=== PATIENT | female | born 1990 | race Caucasian/White ===

== ENCOUNTER 2019-08-11 04:35 | Emergency (ER) | payer OTHER ==
[~2019-08-11] VITALS: Ht 154.9 cm; Wt 79.4 kg
[2019-08-11 04:47] VITALS: BP 129/83
[2019-08-11] MEDS ORDERED: NACL 0.9% 1,000 ML IV ONE (05:30)
[2019-08-11] MEDS ORDERED: KETOROLAC 30 MG/ML VIAL IVP ONE (05:30)
[2019-08-11 06:17] LABS: BASOPHILS # (AUTO) 0.1 K/uL (0.00-0.22); BASOPHILS % (AUTO) 0.9 % (0.0-2.0); EOSINOPHILS # (AUTO) 0.3 K/uL (0-0.4); EOSINOPHILS % (AUTO) 3.3 % (0.0-4.0); HEMOGLOBIN 14.6 g/dL (12.0-16.0); LYMPHOCYTES # (AUTO) 3.2 K/uL (2.5-16.5); LYMPHOCYTES % (AUTO) 32.9 % (20.5-51.1); MEAN CORPUSCULAR HEMOGLOBIN 29 pg (27-31); MEAN CORPUSCULAR HGB CONC 33 g/dL (33-37); MEAN CORPUSCULAR VOLUME 88.3 fL (80-94); MONOCYTES # (AUTO) 0.7 K/uL (0.8-1.0); NEUTROPHILS # (AUTO) 5.4 K/uL (1.8-7.7); NEUTROPHILS % (AUTO) 55.9 % (42.2-75.2); PLATELET COUNT (AUTO) 305 K/uL (140-450); RED BLOOD CELL COUNT(AUTO) 4.98 MIL/uL (4.20-5.40); RED CELL DISTRIBUTION WIDTH 13.6 % (11.6-13.7); WHITE BLOOD COUNT (AUTO) 9.6 K/uL (4.8-10.8)
[2019-08-11 06:42] LABS: ALBUMIN 3.8 g/dL (3.4-5.0); ANION GAP 11.3 (8-16); CARBON DIOXIDE 28.6 mmol/L (21-32); CREATININE 0.8 mg/dL (0.6-1.3); POTASSIUM 3.9 mmol/L (3.5-5.1); TOTAL BILIRUBIN 0.3 mg/dL (0.0-1.0)
--- NOTE | 2019-08-11 07:27 | NUR ---
RECEIVED REPORT FROM SASKIA COLEMAN. PT RESTING IN BED.
[2019-08-11] MEDS ORDERED: MORPHINE SULFATE 4 MG/ML SYR IVP ONE (07:35)
[2019-08-11] MEDS ORDERED: ONDANSETRON 4 MG/2 ML VIAL IVP ONE (07:35)
--- NOTE | 2019-08-11 07:45 | NUR ---
CALLED PHARMACY TO OBTAIN THE MORPHINE ORDERED.
--- NOTE | 2019-08-11 07:47 | NUR ---
LEFT PHARMACY VOICEMAIL IN REGARDS OF OUT OF STOCK MORPHINE SULFATE IN ER OMNICELL
--- NOTE | 2019-08-11 08:06 | NUR ---
PHARMACY CALLED FOR MORPHINE, OUT OF STOCK IN ER OMNICELL. NO ANSWER; 2ND ATTEMPT
[2019-08-11] MEDS ORDERED: MORPHINE SULFATE 5 MG/ML VIAL ONE (08:28)
[2019-08-11 09:08] VITALS: BP 121/86
--- NOTE | 2019-08-11 09:08 | NUR ---
Patient discharged with v/s stable. Written and verbal after care instructions given and explained. Patient alert, oriented and verbalized understanding of instructions. Wheel Chair Assisted with steady gait. All questions addressed prior to discharge. ID band removed. Patient advised to follow up with PMD. Rx of ZOFRAN given. Patient educated on indication of medication including possible reaction and side effects. Opportunity to ask questions provided and answered.
== END 2019-08-11 09:08 | disposition home or self-care (01) ==
LOC: MED 04:35
DX: A08.4 Viral intestinal infection, unspecified (principal); G43.909 Migraine, unspecified, not intractable, without status migrainosus; F41.0 Panic disorder [episodic paroxysmal anxiety]; Z88.0 Allergy status to penicillin; Z91.040 Latex allergy status
CPT/HCPCS: 36415; 80053; 82150; 83690; 84702; 85025; 96361; 96374; 96375; 99284; J1885; J2270; J2405; J7030

== ENCOUNTER 2019-08-31 16:37 | Emergency (ER) | payer OTHER ==
[~2019-08-31] VITALS: Ht 154.9 cm; Wt 81.6 kg
[2019-08-31 16:41] VITALS: BP 142/95
--- NOTE | 2019-08-31 16:55 | NUR ---
28/F C/O CHEST PAIN STARTING APPROX 20 MIN AGO. PAIN STARTED AT MID CHEST, SHOOTING TO RIGHT ARM AND THEN LEFT ARM AND HEAD. DESCRIBED PAIN "A SHOCK". PT WAS LYING DOWN WHEN PAIN STARTED. STATES "I HAVE NAUSEA BUT I WAS SEEN LAST WEEK & WAS TOLD THAT IUD IS LYING TOO LOW & THAT MAY BE CAUSING THE NAUSEA". STATES SOB. SPEAKING IN FULL CLEAR SENTENCES. NAD. PT STATES SHE JUST BEGAN TAKING A MEDICATION FOR HER THYROID TODAY AFTER NOT TAKING IT FOR A WHILE, SHE THINKS ITS LEVOTHYROXINE. DOES NOT KNOW THE DOSE. HX: THYROID, ANXIETY, HERPES RX: VALCYCLOVIR, ALPRAZOLAM, LEVOTHYROXINE (?)
--- NOTE | 2019-08-31 16:59 | NUR ---
EMT AT BEDSIDE FOR EKG
[2019-08-31 17:15] LABS: BASOPHILS # (AUTO) 0.1 K/uL (0.00-0.22); BASOPHILS % (AUTO) 1.4 % (0.0-2.0); EOSINOPHILS # (AUTO) 0.3 K/uL (0-0.4); EOSINOPHILS % (AUTO) 4.3 % (0.0-4.0); HEMATOCRIT 39.8 % (36-48); HEMOGLOBIN 13.2 g/dL (12.0-16.0); LYMPHOCYTES # (AUTO) 2.3 K/uL (2.5-16.5); LYMPHOCYTES % (AUTO) 28.8 % (20.5-51.1); MEAN CORPUSCULAR HEMOGLOBIN 29 pg (27-31); MEAN CORPUSCULAR HGB CONC 33 g/dL (33-37); MEAN CORPUSCULAR VOLUME 88.3 fL (80-94); MONOCYTES # (AUTO) 0.5 K/uL (0.8-1.0); MONOCYTES % (AUTO) 6.7 % (1.7-9.3); NEUTROPHILS # (AUTO) 4.7 K/uL (1.8-7.7); NEUTROPHILS % (AUTO) 58.8 % (42.2-75.2); PLATELET COUNT (AUTO) 296 K/uL (140-450); RED BLOOD CELL COUNT(AUTO) 4.51 MIL/uL (4.20-5.40); RED CELL DISTRIBUTION WIDTH 13.4 % (11.6-13.7); WHITE BLOOD COUNT (AUTO) 7.9 K/uL (4.8-10.8)
[2019-08-31 18:03] LABS: FREE T4 (FREE THYROXINE) 1.22 ng/dL (0.76-1.46); THYROID STIMULATING HORMONE 1.43 uIU/mL (0.34-3.74)
[2019-08-31 18:24] LABS: ALBUMIN 3.7 g/dL (3.4-5.0); CARBON DIOXIDE 26.3 mmol/L (21-32); CREATININE 0.7 mg/dL (0.6-1.3); POTASSIUM 4.3 mmol/L (3.5-5.1); TOTAL BILIRUBIN 0.3 mg/dL (0.0-1.0)
[2019-08-31 18:37] VITALS: BP 132/69
== END 2019-08-31 18:38 | disposition home or self-care (01) ==
LOC: MED 16:37
DX: F41.9 Anxiety disorder, unspecified (principal); G43.909 Migraine, unspecified, not intractable, without status migrainosus; E07.9 Disorder of thyroid, unspecified; Z88.0 Allergy status to penicillin; Z91.040 Latex allergy status
CPT/HCPCS: 36415; 80053; 81025; 84439; 84443; 85025; 93005; 99283; 99284

== ENCOUNTER 2019-10-06 17:31 | Emergency (ER) | payer OTHER ==
[~2019-10-06] VITALS: Ht 154.9 cm; Wt 79.4 kg
--- NOTE | 2019-10-06 17:40 | NUR ---
PT AMBULATED TO ER BED 5
[2019-10-06 17:41] VITALS: BP 133/84
--- NOTE | 2019-10-06 17:55 | NUR ---
c/o pressure type headache with n/v and visual disturbance denies injury/trauma, denies etoh/drug use--- full clear speech, ambulatory with steady gait pupils brisk/reactive to light
[2019-10-06] MEDS ORDERED: ONDANSETRON 4 MG/2 ML VIAL IVP ONE (18:05)
[2019-10-06] MEDS ORDERED: NACL 0.9% 1,000 ML IV ONE (18:05)
[2019-10-06] MEDS ORDERED: SUMAtriptan succinate 25 MG TAB PO ONE (18:05)
[2019-10-06] MEDS ORDERED: KETOROLAC 15 MG/ML VIAL IVP ONE (18:05)
--- NOTE | 2019-10-06 18:33 | NUR ---
MEDICATED WRITTEN, AWAITS CT SCAN WILL CONTINUE TO OBSERVE FOR PAIN CONTROL
[2019-10-06 18:41] LABS: APPEARANCE,URINE CLEAR (CLEAR); BILIRUBIN,URINE NEGATIVE (NEGATIVE); BLOOD, URINE TRACE-I (NEGATIVE); COLOR,URINE YELLOW (YELLOW); LEUKOCYTE ESTERASE ,URINE TRACE (NEGATIVE); NITRITE, URINE NEGATIVE (NEGATIVE); PH,URINE 7.5 (5.0-9.0); UGLUCOSE NEGATIVE (NEGATIVE)
--- NOTE | 2019-10-06 19:19 | NUR ---
RECEIVED REPORT FROM JARED SOTELO. WILL CONT CARE AT THIS TIME.
--- NOTE | 2019-10-06 19:25 | NUR ---
TOOK FLU SWAB TO LAB AT THIS TIME.
[2019-10-06 20:36] VITALS: BP 119/81
--- NOTE | 2019-10-06 20:36 | NUR ---
Patient discharged with v/s stable. Written and verbal after care instructions given and explained. Patient alert, oriented and verbalized understanding of instructions. Ambulatory with steady gait. All questions addressed prior to discharge. ID band removed. Patient advised to follow up with PMD. Rx of ZOFRAN,AND SUMATRIPTAN given. Patient educated on indication of medication including possible reaction and side effects. Opportunity to ask questions provided and answered.
== END 2019-10-06 20:36 | disposition home or self-care (01) ==
LOC: MED 17:31
DX: G43.909 Migraine, unspecified, not intractable, without status migrainosus (principal); R07.2 Precordial pain; R11.2 Nausea with vomiting, unspecified; F41.9 Anxiety disorder, unspecified; E07.9 Disorder of thyroid, unspecified; Z88.0 Allergy status to penicillin; Z91.040 Latex allergy status
CPT/HCPCS: 70450; 71045; 81003; 81025; 87804; 93005; 96374; 96375; 99285; J1885; J2405; J7030

== ENCOUNTER 2020-04-18 03:40 | Emergency (ER) | payer OTHER ==
[~2020-04-18] VITALS: Ht 154.9 cm; Wt 79.4 kg
[2020-04-18 03:41] VITALS: BP 122/80
--- NOTE | 2020-04-18 03:44 | NUR ---
TO LOBBY A/W BED AMBULATORY
--- NOTE | 2020-04-18 04:15 | NUR ---
PT 29 Y/O FEMALE BIB SELF FOR C/O DIZZYNESS UPON STANDING AND X 1 EPISODE OF N/V THIS MORNING. PT STATES, "I JUST FEEL WEIRD, ITS USUALLY WHEN I STAND UP TO FAST." PT DENIES LOC OR BLURRED VISION. PT STATES HAD X 1 EPISODES OF N/V X 1 HOUR AGO WHEN WAKING UP. PT ABD SOFT, ROUND, AND NON-TENDER TO TOUCH. BS PRESENT X 4 QUADRANTS. PT DENIES ANY BLOOD IN EMISIS. VSS. PT BED LOCKED AND IN LOWEST POSITION. MEDHX: MIGRAINE ALLERGIES: PCN, LATEX.
--- NOTE | 2020-04-18 04:15 | NUR ---
PT AMBULATED TO CHAIR C
--- NOTE | 2020-04-18 04:16 | NUR ---
ERMD EVALUATING PT AT BEDSIDE.
[2020-04-18] MEDS ORDERED: NACL 0.9% 1,000 ML IV ONE (04:20)
--- NOTE | 2020-04-18 04:20 | NUR ---
PT AMBULATED TO RESTROOM WITH STEADY GAIT TO PROVIDE UA.
--- NOTE | 2020-04-18 04:52 | NUR ---
18G IV SITE ESTABLISHED TO L AC. SITE WAS PATENT FLUSHED WITH 10 ML OF 0.9% NS. NO INFILTRATION OR REDNESS NOTED.
--- NOTE | 2020-04-18 05:52 | NUR ---
PT BEDSTING IN BED WITH IFV RUNNING PRDERED. PT DENIES AND PAIN, DENIES FURTHER FEELINGS OF NAUSEA. PT HAS NOT HAD EPISODE OF NAUSEA SINCE ARRIVAL. "I DON'T FEEL DIZZY RIGHT NOW."
[2020-04-18 05:53] VITALS: BP 126/84
[2020-04-18 06:21] LABS: ANION GAP 13.3 (8-16); CARBON DIOXIDE 24.6 mmol/L (21-32); CREATININE 0.7 mg/dL (0.6-1.3); POTASSIUM 3.9 mmol/L (3.5-5.1)
[2020-04-18 06:29] LABS: BASOPHILS % (AUTO) 0.6 % (0.0-2.0); EOSINOPHILS # (AUTO) 0.2 K/uL (0-0.4); EOSINOPHILS % (AUTO) 2.5 % (0.0-4.0); HEMATOCRIT 39.8 % (36-48); HEMOGLOBIN 13.1 g/dL (12.0-16.0); LYMPHOCYTES # (AUTO) 2.4 K/uL (2.5-16.5); MEAN CORPUSCULAR HEMOGLOBIN 29 pg (27-31); MEAN CORPUSCULAR HGB CONC 33 g/dL (33-37); MEAN CORPUSCULAR VOLUME 87.7 fL (80-94); MONOCYTES # (AUTO) 0.5 K/uL (0.8-1.0); MONOCYTES % (AUTO) 6.3 % (1.7-9.3); NEUTROPHILS # (AUTO) 4.8 K/uL (1.8-7.7); NEUTROPHILS % (AUTO) 60.6 % (42.2-75.2); PLATELET COUNT (AUTO) 262 K/uL (140-450); RED BLOOD CELL COUNT(AUTO) 4.54 MIL/uL (4.20-5.40); RED CELL DISTRIBUTION WIDTH 13.1 % (11.6-13.7); WHITE BLOOD COUNT (AUTO) 7.9 K/uL (4.8-10.8)
--- NOTE | 2020-04-18 06:40 | NUR ---
IV removed, catheter intact and site benign. Applied folded 4x4 gauze and tape to stop bleeding.
--- NOTE | 2020-04-18 06:54 | NUR ---
Patient discharged with v/s stable. Written and verbal after care instructions given and explained. Patient verbalized understanding. Ambulatory with steady gait. All questions addressed prior to discharge. Advised to follow up with PMD.
== END 2020-04-18 06:54 | disposition home or self-care (01) ==
LOC: MED 03:40
DX: R42 Dizziness and giddiness (principal); E07.9 Disorder of thyroid, unspecified; Z88.0 Allergy status to penicillin; Z91.040 Latex allergy status
CPT/HCPCS: 36415; 80048; 81002; 81025; 85025; 93005; 96360; 96361; 99284; J7030

== ENCOUNTER 2020-08-11 21:59 | Emergency (ER) | payer OTHER ==
[~2020-08-11] VITALS: Ht 154.9 cm; Wt 81.6 kg
[2020-08-11 22:09] VITALS: BP 126/88
--- NOTE | 2020-08-11 22:09 | NUR ---
to bed ambulatory
[2020-08-11] MEDS ORDERED: IBUP-2213 PO (22:19)
--- NOTE | 2020-08-11 22:25 | NUR ---
PATIENT BIB SELF C/O LEFT WRIST PAIN 6 S/P FALL X 1 DAY AGO. PER PATIENT THE PAIN IS SHARP AND RADIATES "TO THE MIDDLE OF MY ARM." A & O X4. SKIN IS PINK, WARM, INTACT. NO APPARENT DISTRESS AT THIS TIME. DENIES CP, SOB, DIFFICULTY BREATHING. PATIENT REPORTS TAKING IBUPROFEN EARLIER WITH NO RELIEF. BED IS LOCKED AND IN LOWEST POSITION. MED HX: DENIES ALLERGIES: PENICILLINS, LATEX
--- NOTE | 2020-08-11 22:28 | NUR ---
PATIENT TAKEN TO XRAY WITH TECH BY SIDE.
--- NOTE | 2020-08-11 22:34 | NUR ---
PATIENT RETURNED FROM XRAY AND AMBULATED TO RESTROOM.
[2020-08-11] MEDS ORDERED: ACETAMINOPHEN EXTRA STRENGTH 500 MG TAB PO ONE ×2 (23:10→23:20)
--- NOTE | 2020-08-11 23:26 | NUR ---
WRIST AND FOREARM SPLINT PLACED ON PT L WRIST AND FASTENED. +CSM
[2020-08-11 23:58] VITALS: BP 126/88
== END 2020-08-11 23:58 | disposition home or self-care (01) ==
LOC: MED 21:59
DX: M25.532 Pain in left wrist (principal); E07.9 Disorder of thyroid, unspecified; Z79.899 Other long term (current) drug therapy; Z88.0 Allergy status to penicillin; Z91.040 Latex allergy status
CPT/HCPCS: 73110; 99283

== ENCOUNTER 2020-10-22 18:09 | Emergency (ER) | payer OTHER, SELFPAY ==
[~2020-10-22] VITALS: Ht 154.9 cm; Wt 83.9 kg
[~2020-10-22 18:09] MED LIST: IBUP-2213 PO
[2020-10-22 18:13] VITALS: BP 138/89
[2020-10-22] MEDS ORDERED: DEXAMETHASONE 10 MG/ML VIAL IM ONE (18:50)
[2020-10-22] MEDS ORDERED: ALBU0.0912 IH (19:01)
[2020-10-22] MEDS ORDERED: BENZ-196 PO (19:01)
[2020-10-22 19:18] VITALS: BP 125/82
== END 2020-10-22 19:18 | disposition home or self-care (01) ==
LOC: MED 18:09
DX: J20.9 Acute bronchitis, unspecified (principal); E03.9 Hypothyroidism, unspecified; Z88.0 Allergy status to penicillin; Z91.040 Latex allergy status; Z79.899 Other long term (current) drug therapy; Z20.822 Contact with and (suspected) exposure to COVID-19
CPT/HCPCS: 71045; 81025; 87426; 87804; 96372; 99284; J1100

== ENCOUNTER 2020-11-11 19:05 | Emergency (ER) | payer OTHER, SELFPAY ==
[~2020-11-11] VITALS: Ht 154.9 cm; Wt 82.6 kg
[~2020-11-11 19:05] MED LIST changes: +ALBU0.0912 IH; +BENZ-196 PO
--- NOTE | 2020-11-11 19:15 | NUR ---
pt ambulated to bed #2
[2020-11-11 19:21] VITALS: BP 123/84
--- NOTE | 2020-11-11 19:45 | NUR ---
PATIENT PRESENTS TO ED WITH C/O SOB . PT STATES "I WAS DIAGNOSED WITH COVID LAST MONDAY, I HAD BRONCHITIS BEFORE THAT. DENIES N/V/D; SKIN IS PINK/WARM/DRY; AAOX4 WITH EVEN AND STEADY GAIT; LUNGS CLEAR BL; HR EVEN AND REGULAR; PATIENT STATES PAIN OF 3/10 AT THIS TIME; VSS; HOB ELEVATED; BEDRAILS UP X2; BED DOWN. ER MD MADE AWARE OF PT STATUS.
[2020-11-11] MEDS ORDERED: ACETAMINOPHEN 325 MG TAB PO ONE (19:50)
[2020-11-11] MEDS ORDERED: predniSONE 20 MG TAB PO ONE (19:50)
[2020-11-11] MEDS ORDERED: ALBUTEROL SULFATE/IPRATROPIU 3 ML SOL IH ONE (19:50)
--- NOTE | 2020-11-11 19:50 | NUR ---
LAB AT BEDSIDE
[2020-11-11 20:18] LABS: BASOPHILS % (AUTO) 0.4 % (0.0-2.0); EOSINOPHILS # (AUTO) 0.1 K/uL (0-0.4); EOSINOPHILS % (AUTO) 1.6 % (0.0-4.0); HEMATOCRIT 41.9 % (36-48); HEMOGLOBIN 14.1 g/dL (12.0-16.0); LYMPHOCYTES # (AUTO) 1.4 K/uL (2.5-16.5); LYMPHOCYTES % (AUTO) 43.5 % (20.5-51.1); MEAN CORPUSCULAR HEMOGLOBIN 29 pg (27-31); MEAN CORPUSCULAR HGB CONC 34 g/dL (33-37); MEAN CORPUSCULAR VOLUME 85.4 fL (80-94); MONOCYTES # (AUTO) 0.2 K/uL (0.8-1.0); MONOCYTES % (AUTO) 7.4 % (1.7-9.3); NEUTROPHILS # (AUTO) 1.5 K/uL (1.8-7.7); NEUTROPHILS % (AUTO) 47.1 % (42.2-75.2); PLATELET COUNT (AUTO) 256 K/uL (140-450); RED CELL DISTRIBUTION WIDTH 13.8 % (11.6-13.7); WHITE BLOOD COUNT (AUTO) 3.3 K/uL (4.8-10.8)
[2020-11-11 20:35] LABS: ANION GAP 13.6 (8-16); CARBON DIOXIDE 26.1 mmol/L (21-32); CREATININE 0.7 mg/dL (0.6-1.3); POTASSIUM 3.7 mmol/L (3.5-5.1)
[2020-11-11] MEDS: BENZONATATE 100 MG CAPLF PO SCH ×3 (20:42→20:49)
[2020-11-11] MEDS ORDERED: PRED20TA5 PO (20:44)
[2020-11-11] MEDS ORDERED: AZIT250T4 PO (20:44)
[2020-11-11] MEDS ORDERED: BENZ-196 PO (20:44)
[2020-11-11 20:52] VITALS: BP 130/79
--- NOTE | 2020-11-11 20:53 | NUR ---
Patient discharged with v/s stable. Written and verbal after care instructions given and explained. Patient alert, oriented and verbalized understanding of instructions. Ambulatory with steady gait. All questions addressed prior to discharge. ID band removed. Patient advised to follow up with PMD. Rx of TESSALON PERLE, ZITHROMAX AND PREDNISONE given. Patient educated on indication of medication including possible reaction and side effects. Opportunity to ask questions provided and answered.
== END 2020-11-11 20:52 | disposition home or self-care (01) ==
LOC: MED 19:05
DX: U07.1 COVID-19 (principal); J12.89 Other viral pneumonia; Z79.899 Other long term (current) drug therapy; Z79.51 Long term (current) use of inhaled steroids; Z79.2 Long term (current) use of antibiotics; Z88.0 Allergy status to penicillin; Z91.040 Latex allergy status
CPT/HCPCS: 36415; 71045; 80048; 85025; 94640; 99284; J7512

== ENCOUNTER 2020-12-28 09:28 | Emergency (ER) | payer OTHER, SELFPAY ==
[~2020-12-28] VITALS: Ht 154.9 cm; Wt 86.2 kg
[~2020-12-28 09:28] MED LIST changes: +AZIT250T4 PO; -IBUP-2213 PO; +PRED20TA5 PO
[2020-12-28 09:51] VITALS: BP 133/91
[2020-12-28] MEDS ORDERED: PROCHLORPERAZINE 10 MG/2 ML VIAL IM ONE (10:10)
[2020-12-28] MEDS ORDERED: KETOROLAC 60 MG/2 ML VIAL IM ONE (10:10)
--- NOTE | 2020-12-28 10:13 | NUR ---
Pt ambulated to bed 06.
--- NOTE | 2020-12-28 10:23 | NUR ---
30 Y/O FEMALE C/O HEADACHE, ABD PAIN 7/10 DESCRIBES CRAMPING GENERALIZED NON-RADIATING, X 5 AM TODAY. COVID TESTED + 11/06/20 & TESTED NEGATIVE IN NOVEMBER 2020. PT DENIES FEVER/+CHILLS, STATES +N/+V 1 TIME SINCE ARRIVAL. ABDOMEN IS SOFT, ROUND, NON-TENDER TO PALPATION, BOWEL SOUNDS ACTIVE X4, LAST BM 12/27/20. DENIES PMH ALLERGIES: PCN, LATEX
--- NOTE | 2020-12-28 11:06 | NUR ---
DR. HAYDEN AT PT BEDSIDE FOR RE-EVALUATION.
[2020-12-28] MEDS ORDERED: ONDA-24 SL (11:19)
[2020-12-28 11:32] VITALS: BP 128/86
--- NOTE | 2020-12-28 11:32 | NUR ---
Patient discharged with v/s stable. Written and verbal after care instructions given N/V, AND RECURRENT MIGRAINES and explained. Patient alert, oriented and verbalized understanding of instructions. Ambulatory with steady gait. All questions addressed prior to discharge. ID band removed. Patient advised to follow up with PMD. Rx of ZOFRAN 4MG ODT Q8H PRN N/V given. Patient educated on indication of medication including possible reaction and side effects. Opportunity to ask questions provided and answered.
== END 2020-12-28 11:32 | disposition home or self-care (01) ==
LOC: MED 09:28
DX: R11.2 Nausea with vomiting, unspecified (principal); G43.909 Migraine, unspecified, not intractable, without status migrainosus
CPT/HCPCS: 81002; 81025; 96372; 99284; J0780; J1885; Q0163

== ENCOUNTER 2021-06-13 13:02 | Emergency (ER) | payer MEDICAID, SELFPAY ==
[~2021-06-13] VITALS: Ht 154.9 cm; Wt 86.2 kg
[~2021-06-13 13:02] MED LIST changes: +ONDA-188 SL
[2021-06-13 13:07] VITALS: BP 131/90
--- NOTE | 2021-06-13 13:35 | NUR ---
30/F PRESENTS TO ED WITH C/O SORE THROAT, DRY COUGH AND RUNNY NOSE X1 WEEK, REPORTS TAKING OTC COUGH MEDICINE WITH MILD RELIEF. PATIENT STATES FAMILY WAS RECEN[place] IN [place] AND EVERYONE HAD SIMILAR SYMPTOMS, STATES DAUGHTER THAT LIVES IN THE SAME HOUSE HAS SIMILAR SYMPTOMS. DENIES RECENT COVID EXPOSURE TO HER KNOWLEDGE, DENIES FEVERS, CP, SOB.
[2021-06-13] MEDS ORDERED: IBUPROFEN 600 MG TAB PO ONE (13:40)
[2021-06-13 15:00] VITALS: BP 131/90
--- NOTE | 2021-06-13 15:00 | NUR ---
Patient discharged with v/s stable. Written and verbal after care instructions ABOUT UPPER RESPIRATORY INFECTION given and explained. Patient verbalized understanding. Ambulatory with steady gait. All questions addressed prior to discharge. Advised to follow up with PMD.
== END 2021-06-13 15:00 | disposition home or self-care (01) ==
LOC: MED 13:02
DX: J02.8 Acute pharyngitis due to other specified organisms (principal); B97.89 Other viral agents as the cause of diseases classified elsewhere; J06.9 Acute upper respiratory infection, unspecified; Z20.822 Contact with and (suspected) exposure to COVID-19; Z79.899 Other long term (current) drug therapy; Z79.2 Long term (current) use of antibiotics; Z79.51 Long term (current) use of inhaled steroids; Z88.0 Allergy status to penicillin; Z91.040 Latex allergy status
CPT/HCPCS: 87081; 87804; 99283; U0003

== ENCOUNTER 2022-07-06 08:31 | Emergency (ER) | payer MEDICAID, OTHER ==
[~2022-07-06] VITALS: Ht 157.5 cm; Wt 85.7 kg
[2022-07-06 08:49] VITALS: BP 144/90
[2022-07-06] MEDS ORDERED: DEXT118S25 PO (09:01)
[2022-07-06 09:34] VITALS: BP 143/92
--- NOTE | 2022-07-06 09:35 | NUR ---
Patient discharged with v/s stable. Written and verbal after care instructions given and explained. Patient alert, oriented and verbalized understanding of instructions. Ambulatory with steady gait. All questions addressed prior to discharge. ID band removed. Patient advised to follow up with PMD. Rx of GUAIFENESIN/DEXTROMETHORPHAN given. Opportunity to ask questions provided and answered.
--- NOTE | 2022-07-06 09:36 | NUR ---
The patient's care was reviewed and supervised by Laureen Lozano, RN, RN.
== END 2022-07-06 09:35 | disposition home or self-care (01) ==
LOC: MED 08:31
DX: R05.9 Cough, unspecified (principal); Z79.899 Other long term (current) drug therapy; Z79.2 Long term (current) use of antibiotics; Z88.0 Allergy status to penicillin; Z91.040 Latex allergy status
CPT/HCPCS: 99282